=== PATIENT | male | born 1955 | race Caucasian/White ===

== ENCOUNTER → 2025-01-07 | Day surgery (SDC) | payer OTHER ==
[~2025-01-07] MED LIST: Dexamethasone 4 MG/ML SDV ONE; Glycopyrrolate 0.2 MG/ML 5 ML MDV ONE; Naloxone 0.4 MG/ML SDV IVPUSH PRN; Neostigmine Methylsulfate 10 MG/10 ML MDV ONE; Ondansetron 4 MG/2 ML SDV ONE; Propofol 200 MG/20 ML SDV ONE; Rocuronium 50 MG/5 ML Vial ONE; Succinylcholine 200 MG/10 ML MDV ONE; fentaNYL 250 MCG/5 ML SDV ONE
[2025-01-07] MEDS: HYDROmorphone 0.5 MG/0.5 ML Syringe IM ONE (11:46)
[2025-01-07 14:14] LABS: BASOPHILS ABSOLUTE AUTO 0.04 K/uL (0.00-0.10); BASOPHILS PERCENT AUTO 0.5 % (0.1-1.3); EOSINOPHILS PERCENT AUTO 0.2 % (0.0-5.4); HEMATOCRIT 41.4 % (34.3-46.0); HEMOGLOBIN 14.2 g/dL (11.2-15.5); IMMATURE GRAN ABSOLUTE AUTO 0.03 K/uL (0.00-0.23); IMMATURE GRAN PERCENT AUTO 0.3 % (0.0-0.7); LYMPHOCYTES PERCENT AUTO 7.9 % (11.4-47.7); MEAN CORPUSCULAR HGB CONC 34.3 g/dL (31.6-35.5); MEAN CORPUSCULAR VOLUME 96.3 fL (81.4-99.0); MONOCYTES ABSOLUTE AUTO 0.47 K/uL (0.20-0.90); MONOCYTES PERCENT AUTO 5.3 % (3.3-12.6); NEUTROPHILS ABSOLUTE AUTO 7.58 K/uL (1.0-7.6); NEUTROPHILS PERCENT AUTO 85.8 % (40.0-78.1); PLATELET COUNT,PLT 252 K/uL (130-375); WHITE BLOOD CELL COUNT,WBC 8.8 K/uL (3.2-11.0)
[2025-01-07 14:15] LABS: EOSINOPHILS ABSOLUTE AUTO 0.02 K/uL (0.00-0.40)
[2025-01-07 14:29] LABS: CALCIUM 9.1 mg/dL (8.5-10.1); CREATININE 0.9 mg/dL (0.6-1.0); EST CRCL DRUG DOSING (CG) 53.67 mL/min; POTASSIUM,K 4.1 mmol/L (3.6-5.2)
[2025-01-07 14:30] LABS: ANION GAP 16.1 mmol/L (5.0-14.0)
[2025-01-07] MEDS: HYDROmorphone 0.5 MG/0.5 ML Syringe IVPUSH ONE ×2 (15:05→19:10)
[2025-01-07] MEDS: Sodium Chloride 0.9% 10 ML Syringe FLUSH PRN (15:06)
[2025-01-07] MEDS: ceFAZolin 2 GM in Premix Bag 1 BAG IV ONE (15:07)
[2025-01-07] MEDS: Albuterol/Ipratropium 3.0-0.5 MG/3 ML Neb Soln NEB ONE (17:15)
[2025-01-07] MEDS: Bupivacaine 0.5% 30 ML SDV ONE (17:57)
== END ==
LOC: JP.ED 10:13 → JP.SDS 14:02 → EDSEX 14:02
PROVIDERS: ATTEND Specialist
DX: S82.62XA Displaced fracture of lateral malleolus of left fibula, initial encounter for closed fracture (principal); I10 Essential (primary) hypertension; J44.9 Chronic obstructive pulmonary disease, unspecified; E78.00 Pure hypercholesterolemia, unspecified; K21.9 Gastro-esophageal reflux disease without esophagitis; Z79.899 Other long term (current) drug therapy; Z87.891 Personal history of nicotine dependence; Z88.6 Allergy status to analgesic agent; X58.XXXA Exposure to other specified factors, initial encounter
CPT/HCPCS: 01480-QZ; 36415; 73610-26-LT; 73610-LT; 76000; 80048; 85025; 99283; A9270-GY; C1713; J0330; J0665; J0690; J1100; J1596; J2405; J2704; J2710; J3010; J3490